=== PATIENT | female | born 1985 | race Caucasian/White ===

== ENCOUNTER 2017-04-14 13:11 | Emergency (ER) | payer OTHER ==
--- NOTE | 2017-04-14 14:20 | ED ORDER SUMMARY ---
..... Patient: MONTRELL ROSS OrderSheet [facility] VisitID: [id number] [address] [place] [address] 31y, F Registration Date/Time: 04/14/2017 ORDER SHEET Weight: 73.4 kg (measured) Allergies: No Known Drug Allergy GENERAL ORDERS: Heart Tones (13:58 04/14/2017 Katalina A.R.N.P.) (14:12 Nohemy Love) MEDICATION ORDERS: IV FLUIDS: ORDER SHEET NOTES: [Electronically signed by Alee RiveraRGlennaN.PGlenna (18:46 04/14/2017)] [Electronically signed by Jay Olmos R.N. (20:39 04/14/2017)] [Electronically locked/signed by Jay Olmos R.N. (20:39 04/14/2017)]
--- NOTE | 2017-04-14 14:20 | ED NURSING NOTES ---
Clinical Report - Nurses [facility] [address] [place] [address] 04/14/2017 13:12 Patient: MONTRELL ROSS TRIAGE Triage time 13:Apr 14 2017. Acuity: LEVEL 5. Chief Complaint: COUGH and RUNNY NOSE and (pt with cough, runny nose x 1 week, here with both children with similar symptoms, pt AB? EDC 06-18-2017). Alert. No acute distress. SEPSIS SCREEN: Sepsis Screen: negative. Infection suspected/documented. --13:35 Jay Olmos R.N. 13:31 04/14/17. BP: 118/57. HR: 98. RR: 17. O2 saturation: 100%. Temp: 97.9 F. Pain level now: 0/10. --13:35 Jay Olmos R.N. Weight: 73.4 kg measured. Height/Length: 67 inches Per Patient. BMI: 25.4. --13:32 Jay Olmos R.N. Medications Vitamins Oral. --13:34 Jay Olmos R.N. Allergies No Known Drug Allergy. --13:34 Jay Olmos R.N. Medication/allergy information source: the patient. --13:35 Jay Olmos R.N. History Arrived by private vehicle. Historian: patient. Treatment ENFORCEMENT OFFICER: None. PAST MEDICAL HX: The patient has had contact with a sick individual. (both children with similar symptoms). Immunizations: up-to-date. Currently : Jun 182016 EDC: baby moving normally. In 3rd trimester. No recent travel. SOCIAL HX: Former smoker. No alcohol use or drug use. No infectious disease exposure. ABUSE ASSESSMENT: No report of abuse. SELF HARM ASSESSMENT: A self harm assessment was performed. The patient answered "no" to the question "Do you have thoughts of harming or killing yourself?". FALL RISK ASSESSMENT: Fall risk assessment completed. No fall risk identified. NUTRITIONAL RISK ASSESSMENT: The nutritional risk assessment revealed no deficiencies. FUNCTIONAL ASSESSMENT: Functional assessment: no impairments noted. LEARNING NEEDS ASSESSMENT: The learning needs assessment revealed no barriers. SKIN INTEGRITY ASSESSMENT: Skin integrity risk assessment completed. No skin integrity risk identified. --13:35 Jay Olmos R.N. PROBLEMS: Vaginitis. OB History. Laceration. Vomiting. Fever. Mastitis. Pelvic Pain. --13:34 Jay Olmos R.N. ADDITIONAL SURGERIES: Dental Surgery. [place] Teeth Extraction . --13:34 Jay Olmos R.N. Interventions ID band on patient. To treatment room. --13:35 Jay Olmos R.N. PHYSICAL ASSESSMENT Ambulatory to room. GENERAL / NEURO / PSYCH: Alert. Oriented X 4. Appears in no acute distress. HEENT: Pupils equal, round and reactive to light. Voice within normal limits. Mucous membranes are pink. RESPIRATORY: Respirations not labored. SKIN: Skin is warm and dry. Normal skin turgor. --13:36 Jay Olmos R.N. NURSING PROGRESS NOTES Patient identifiers checked. Call light placed in reach. Patient placed in chair. Brakes of chair on. Patient ready for evaluation- chart flagged. Patient waiting for evaluation. --13:36 Jay Olmos R.N. HEART TONES: heart tones present (135 and regular rodrigo umbilical area). --14:14 Jay Olmos R.N. DISPOSITION / DISCHARGE Condition at departure: unchanged. No learning barriers present. Discharge instructions provided and reviewed with the patient. Reviewed medication(s) information (otc meds discussed per MUSEUM LIBRARIAN). Patient verbalized understanding. Written instructions provided in [place]ati. The patient was discharged by the nurse practitioner. She was discharged home and accompanied by family. She left the Emergency Department ambulatory and via private vehicle. Patient driving. --14:50 Jay Olmos R.N. 14:49 04/14/17. BP: deferred. HR: deferred. RR: deferred. O2 saturation: deferred. Temp: deferred. Pain level now deferred. --14:50 Jay Olmos R.N. Locked/Released at 04/14/2017 20:39 by Jay Olmos R.N.
--- NOTE | 2017-04-14 14:20 | ED ORDER SUMMARY ---
..... Patient: MONTRELL ROSS OrderSheet [facility] VisitID: [id number] [address] [place] [address] 31y, F Registration Date/Time: 04/14/2017 ORDER SHEET Weight: 73.4 kg (measured) Allergies: No Known Drug Allergy GENERAL ORDERS: Heart Tones (13:58 04/14/2017 Katalina A.R.N.P.) (14:12 Nohemy Love) MEDICATION ORDERS: IV FLUIDS: ORDER SHEET NOTES: [Electronically signed by Alee RiveraRGlennaN.PGlenna (18:46 04/14/2017)] [Electronically signed by Jay Olmos R.N. (20:39 04/14/2017)] [Electronically locked/signed by Jay Olmos R.N. (20:39 04/14/2017)]
--- NOTE | 2017-04-14 14:20 | ED NURSING NOTES ---
Clinical Report - Nurses [facility] [address] [place] [address] 04/14/2017 13:12 Patient: MONTRELL ROSS TRIAGE Triage time 13:Apr 14 2017. Acuity: LEVEL 5. Chief Complaint: COUGH and RUNNY NOSE and (pt with cough, runny nose x 1 week, here with both children with similar symptoms, pt AB? EDC 06-18-2017). Alert. No acute distress. SEPSIS SCREEN: Sepsis Screen: negative. Infection suspected/documented. --13:35 Jay Olmos R.N. 13:31 04/14/17. BP: 118/57. HR: 98. RR: 17. O2 saturation: 100%. Temp: 97.9 F. Pain level now: 0/10. --13:35 Jay Olmos R.N. Weight: 73.4 kg measured. Height/Length: 67 inches Per Patient. BMI: 25.4. --13:32 Jay Olmos R.N. Medications Vitamins Oral. --13:34 Jay Olmos R.N. Allergies No Known Drug Allergy. --13:34 Jay Olmos R.N. Medication/allergy information source: the patient. --13:35 Jay Olmos R.N. History Arrived by private vehicle. Historian: patient. Treatment EDITORIAL INTERN: None. PAST MEDICAL HX: The patient has had contact with a sick individual. (both children with similar symptoms). Immunizations: up-to-date. Currently : Jun 182016 EDC: baby moving normally. In 3rd trimester. No recent travel. SOCIAL HX: Former smoker. No alcohol use or drug use. No infectious disease exposure. ABUSE ASSESSMENT: No report of abuse. SELF HARM ASSESSMENT: A self harm assessment was performed. The patient answered "no" to the question "Do you have thoughts of harming or killing yourself?". FALL RISK ASSESSMENT: Fall risk assessment completed. No fall risk identified. NUTRITIONAL RISK ASSESSMENT: The nutritional risk assessment revealed no deficiencies. FUNCTIONAL ASSESSMENT: Functional assessment: no impairments noted. LEARNING NEEDS ASSESSMENT: The learning needs assessment revealed no barriers. SKIN INTEGRITY ASSESSMENT: Skin integrity risk assessment completed. No skin integrity risk identified. --13:35 Jay Olmos R.N. PROBLEMS: Vaginitis. OB History. Laceration. Vomiting. Fever. Mastitis. Pelvic Pain. --13:34 Jay Olmos R.N. ADDITIONAL SURGERIES: Dental Surgery. [place] Teeth Extraction . --13:34 Jay Olmos R.N. Interventions ID band on patient. To treatment room. --13:35 Jay Olmos R.N. PHYSICAL ASSESSMENT Ambulatory to room. GENERAL / NEURO / PSYCH: Alert. Oriented X 4. Appears in no acute distress. HEENT: Pupils equal, round and reactive to light. Voice within normal limits. Mucous membranes are pink. RESPIRATORY: Respirations not labored. SKIN: Skin is warm and dry. Normal skin turgor. --13:36 Jay Olmos R.N. NURSING PROGRESS NOTES Patient identifiers checked. Call light placed in reach. Patient placed in chair. Brakes of chair on. Patient ready for evaluation- chart flagged. Patient waiting for evaluation. --13:36 Jay Olmos R.N. HEART TONES: heart tones present (135 and regular rodrigo umbilical area). --14:14 Jay Olmos R.N. DISPOSITION / DISCHARGE Condition at departure: unchanged. No learning barriers present. Discharge instructions provided and reviewed with the patient. Reviewed medication(s) information (otc meds discussed per GLASS FURNACE OPERATOR). Patient verbalized understanding. Written instructions provided in Bel[place]ian. The patient was discharged by the nurse practitioner. She was discharged home and accompanied by family. She left the Emergency Department ambulatory and via private vehicle. Patient driving. --14:50 Jay Olmos R.N. 14:49 04/14/17. BP: deferred. HR: deferred. RR: deferred. O2 saturation: deferred. Temp: deferred. Pain level now deferred. --14:50 Jay Olmos R.N. Locked/Released at 04/14/2017 20:39 by Jay Olmos R.N.
--- NOTE | 2017-04-14 14:20 | ED CLINICAL REPORT ---
Clinical Report - Physicians/Mid Levels [facility] [address] [place] [address] 04/14/2017 13:12 Patient: MONTRELL ROSS Time Seen: 13:20; initial patient contact, initial documentation, patient care assumed. Arrived- By private vehicle. Historian- patient. HISTORY OF PRESENT ILLNESS Chief Complaint: COUGH. This started about 1 weeks ago and is still present but is improving. The illness is described as mild. The patient has had a cough and a nasal discharge. No sputum production, difficulty breathing, chest discomfort or pain or fever. No muscle aches, sore throat, nasal congestion, sinus pressure or sinus drainage. No ear pain. Additional history - No known contact with a sick individual. No recent travel. Similar symptoms previously: None. Recent medical care: Not recently seen/assessed. REVIEW OF SYSTEMS Currently : In 3rd trimester. Has had care by private doctor. G 7. P 2. Ab 4. All systems otherwise negative, except as recorded above. PAST HISTORY See nurses notes. PROBLEMS: Vaginitis. OB History. Laceration. Vomiting. Fever. Mastitis. Pelvic Pain. --13:34 Jay Olmos, RGlennaN. ADDITIONAL SURGERIES: Dental Surgery. [place] Teeth Extraction . --13:34 Jay Olmos RHomar. SOCIAL HISTORY Former smoker. Not exposed to second-hand smoke at home. No alcohol use or drug use. No recent travel. Is a local resident. FAMILY HISTORY Negative. ADDITIONAL NOTES The nursing notes have been reviewed with agreement regarding the chief complaint, HPI, ROS, PMH and patient medications and allergies. PHYSICAL EXAM Vital Signs: 04/14/2017 13:31 BP: 118/57. HR: 98. RR: 17. O2 saturation: 100%. Temp: 97.9 F. Pain level now: 0/10. Have been reviewed as normal and appear to be correct. Appearance: Alert. No acute distress. Eyes: Pupils equal, round and reactive to light. Eyes normal inspection. ENT: Ears normal. Nose normal. Pharynx normal. Uvula midline. Neck: Normal inspection. Neck supple. CVS: Normal heart rate and rhythm. Heart sounds normal. Pulses normal. Respiratory: No respiratory distress. Breath sounds normal. Abdomen: Soft and nontender. Nontender gravid uterus palpable to midpoint between umbilicus and xiphoid (FHT's 135 per nurse). Size consistent with dates. Normal heart tones. No organomegaly. Back: Normal inspection. Skin: Skin warm and dry. Normal skin color. No rash. Normal skin turgor. Extremities: Extremities exhibit normal ROM. No lower extremity edema. Neuro: Oriented X 3. No motor deficit. No sensory deficit. PROGRESS AND PROCEDURES Patient counseled in person regarding the patient's stable condition and diagnosis. Differential Diagnosis: Other possible considerations: allergies, flu, uri, viral illness, bronchitis, pneumonia. Above considerations are based on history and physical exam. Differential diagnosis was discussed with patient. Disposition: Discharged home in good and unchanged condition (14:20). Condition: good and stable. CLINICAL IMPRESSION Acute viral rhinitis. No airway obstruction. INSTRUCTIONS Take Tylenol (Acetaminophen) for fever, temperature greater than 101 degrees orally. Take according to label instructions. Drink plenty of fluids until better. Warnings: GENERAL WARNINGS: Return or contact your physician immediately if your condition worsens or changes unexpectedly, if not improving as expected, or if other problems arise. Specifically return if problem worsens. Follow-up: Follow up with your doctor in about three days as needed. Call for an appointment. Summary of care provided to patient. Understanding of the discharge instructions verbalized by patient. (Electronically signed by Alee Rivera A.R.N.P. 04/14/2017 18:46)
--- NOTE | 2017-04-14 20:40 | ED DISCHARGE INSTRUCTIONS ---
Patient: MONTRELL ROSS General Instructions [facility] VisitID: [id number] [place] [address] 31y, F Registration Date/Time: 04/14/2017 Acute viral rhinitis. No airway obstruction. INSTRUCTIONS Take Tylenol (Acetaminophen) for fever, temperature greater than 101 degrees orally. Take according to label instructions. Drink plenty of fluids until better. Warnings: GENERAL WARNINGS: Return or contact your physician immediately if your condition worsens or changes unexpectedly, if not improving as expected, or if other problems arise. Specifically return if problem worsens. Follow-up: Follow up with your doctor in about three days as needed. Call for an appointment. Summary of care provided to patient. Understanding of the discharge instructions verbalized by patient. ADDITIONAL INFORMATION Viral Respiratory Illness [Adult] You have an Upper Respiratory Illness (URI) caused by a virus. This illness is contagious during the first few days. It is spread through the air by coughing and sneezing or by direct contact (touching the sick person and then touching your own eyes, nose or mouth). Most viral illnesses go away within 7-10 days with rest and simple home remedies. Sometimes, the illness may last for several weeks. Antibiotics will not kill a virus and are generally not prescribed for this condition. Home Care: 1) If symptoms are severe, rest at home for the first 2-3 days. When you resume activity, don't let yourself get too tired. 2) Avoid being exposed to cigarette smoke (yours or others). 3) Tylenol (acetaminophen) or ibuprofen (Advil, Motrin) will help fever, muscle aching and headache. (Persons under 18 with fever should not take aspirin since this may cause liver damage.) 4) Your appetite may be poor, so a light diet is fine. Avoid dehydration by drinking 6-8 glasses of fluids per day (water, soft drinks, juices, tea, soup). Extra fluids will help loosen secretions in the nose and lungs. 5) Hokx-qal-azvomtn cold medicines will not shorten the length of time youre sick, but they may be helpful for the following symptoms: cough (Robitussin DM); sore throat (Chloraseptic lozenges or spray); nasal and sinus congestion (Actifed, Sudafed, Chlortrimeton). Follow Up with your doctor or as advised if you dont improve over the next week. Get Prompt Medical Attention if any of the following occur: -- Cough with lots of colored sputum (mucus) or blood in your sputum -- Chest pain, shortness of breath, wheezing or have trouble breathing -- Severe headache; face, neck or ear pain -- Fever over 100.4 F (38.0 C) for more than three days -- You cant swallow due to throat pain Fever Control (Adult) A fever is a natural reaction of the body to an illness. In most cases, the temperature itself is not harmful. It actually helps the body fight infections. A fever does not need to be treated unless you feel very uncomfortable. Home Care If you feel warm, check your temperature. If you feel very uncomfortable and your temperature is at or higher than 100.4F (38C) oral, you may take acetaminophen (Tylenol) every 4 to 6 hours. If you cant take or keep down oral medicine, ask your pharmacist for Tylenol suppositories, which you can get without a prescription. If the fever does not respond to acetaminophen within 1 hour, take ibuprofen (Advil or Motrin). If this works, keep taking the ibuprofen every 6 to 8 hours. Note: If you have chronic liver or kidney disease or ever had a stomach ulcer or GI bleeding, talk with your doctor before using these medications. If either medication alone does not keep the fever down, you may alternate the two medicines every 3 to 4 hours, only if your healthcare provider has instructed you to do so. For example, take Motrin then wait 3 hours, take Tylenol then wait 3 hours, take Motrin, and so on. Follow your healthcare providers instructions exactly. Clothing: Keep clothing light because excess body heat is lost through the skin. The fever will go up if you wear extra layers or wrap in blankets. Fluids: Fever causes the body to lose water through evaporation. Drink plenty of fluids such as water, juice, clear sodas, macrina natalia, or lemonade. Do not use aspirin in anyone under 18 years of age who is ill with a fever. It can cause severe liver damage. Follow Up with your doctor or as advised by our staff if you do not get better after 48 hours. Get Prompt Medical Attention if any of the following occur: Fever does not get better after taking fever medication Fast or difficult breathing Earache, sinus pain, stiff or painful neck, headache, repeated diarrhea or vomiting You feel unusually irritable, drowsy, or confused A rash appears You feel weak or dizzy, or that you might faint You have been given the following additional information: Uri, Viral, No Abx (Adult) Fever Control (Adult) (Electronically signed by Alee Rivera A.R.N.PGlenna 04/14/2017 18:46)
--- NOTE | 2017-04-14 20:40 | ED MED RECONCILIATION SUMMARY ---
Patient: MONTRELL ROSS Medication Reconciliation Report VisitID: [id number] [address] [place] [address] 31y, F Registration Date/Time: 04/14/2017 Weight: 73.4 kg Height/Length: 67 in. BMI: 25.4 ALLERGIES: No Known Drug Allergy The patient's Home Medications are listed below: THE FOLLOWING MEDICATIONS NEED TO BE RECONCILED: Vitamins Oral The source(s) of the original Home Medication information: patient The following Medications were given to the patient in the Emergency Department: None. The following Medications were prescribed to the patient: None.
--- NOTE | 2017-04-14 20:40 | ED MAR SUMMARY ---
..... Medication Administration Record [facility] [address] [place], [place] [id number] Patient: MONTRELL ROSS Visit ID: [id number] 31y, F Weight: 73.4 kg Height/Length: 67 in BMI: 25.4 ALLERGIES: No Known Drug Allergy
--- NOTE | 2017-04-14 20:40 | ED MAR SUMMARY ---
..... Medication Administration Record [facility] [address] [place] [place], [place] [id number] Patient: MONTRELL ROSS Visit ID: [id number] 31y, F Weight: 73.4 kg Height/Length: 67 in BMI: 25.4 ALLERGIES: No Known Drug Allergy
--- NOTE | 2017-04-14 20:40 | ED MED RECONCILIATION SUMMARY ---
Patient: MONTRELL ROSS Medication Reconciliation Report [facility] VisitID: [id number] [address] [place] [address] 31y, F Registration Date/Time: 04/14/2017 Weight: 73.4 kg Height/Length: 67 in. BMI: 25.4 ALLERGIES: No Known Drug Allergy The patient's Home Medications are listed below: THE FOLLOWING MEDICATIONS NEED TO BE RECONCILED: Vitamins Oral The source(s) of the original Home Medication information: patient The following Medications were given to the patient in the Emergency Department: None. The following Medications were prescribed to the patient: None.
== END 2017-04-14 14:41 | disposition home or self-care (01) ==
LOC: ED SRH 13:11
DX: O99.513 Diseases of the respiratory system complicating pregnancy, third trimester (principal); J00 Acute nasopharyngitis [common cold]